=== PATIENT | female | born 1990 ===

== ENCOUNTER → 2018-08-30 | Outpatient (REF) | LOC: M LAB REF 18:36 | PROVIDERS: ATTEND Obstetrics & Gynecology | DX: Z02.89 Encounter for other administrative examinations (principal) ==

== ENCOUNTER → 2018-11-20 | Outpatient (REF) | LOC: M LAB LCGH 14:01 | PROVIDERS: ATTEND Surgery | DX: Z00.00 Encounter for general adult medical examination without abnormal findings (principal) ==